=== PATIENT | female | born 1945 | race Caucasian/White ===

== ENCOUNTER 2017-06-12 19:11 | Emergency (ER) | payer BC ==
[~2017-06-12] VITALS: Ht 177.8 cm; Wt 81.8 kg
[~2017-06-12 19:11] MED LIST: ASPI81TA28 PO; CALC500C70 PO; FLNIN NAE; LEVO100T7 PO; MISCCAP80 PO; MULT-506 PO; OMEG10007 PO; PRLSR20 PO; SOLI5TAB2 PO; TRMO180 PV
[2017-06-12 19:18] VITALS: TEMP 36.8; Ht 177.8 cm; Wt 81.8 kg
[2017-06-12] MEDS ORDERED: PROPARACAINE HCL 0.5% OP SOLN 15 ML BTL OP STA (19:38)
[2017-06-12] MEDS ORDERED: AMOX875T PO (20:04)
[2017-06-12 20:14] VITALS: BP 128/74; PULSE 74; O2SAT 98
[2017-06-12] MEDS ORDERED: AMOXICIL/CLAVU 875MG HOME PACK PO ONE (20:15)
[2017-06-12] MEDS ORDERED: CIPROFLOXACIN HCL 0.3% OP SOLN 2.5 ML BTL OP ONE (20:15)
--- NOTE | 2017-06-13 15:44 | EMERGENCY ROOM VISIT NOTE ---
History First contact with patient: 19:23 Chief Complaint: EYE ASSESSMENT Stated Complaint: SOMETHING IN RIGHT EYE History of Present Illness The patient is a 71 year old female who presents to the Emergency Room with complaints of irritation to her right eye that is slowly worsening over the past few hours. The patient has not had decreased vision of the eye. She does not recall injury or trauma. She does report having sinus/flulike symptoms for the past several days as well. She has evidently been seen by her primary care physician for this, and is not currently on antibiotics. The patient has not had fever or chills. No head, neck, chest, or abdominal pain. She did use over -the-counter rewetting drops thinking her eye was dry, however this did not change her symptoms. She does not wear contact lenses and rates her discomfort a 4/10. Review of Systems More than 10 systems were reviewed and otherwise negative with the exception of history of present illness. Past Medical/Surgical History Medical Problems: (1) Breast cancer (2) High cholesterol (3) IBS (irritable bowel syndrome) Family History FHx: diverticulitis Social History Smoking Status: Never Smoker Drug Use: none Marital Status: Housing Status: lives with family Occupation Status: employed Current/Historical Medications Scheduled Amoxicillin & Pot Clavulanate (Augmentin 875-125 mg), 1 TAB PO BID Aspirin (Aspirin Ec), 81 MG PO DAILY Calcium/Vitamin D (Os-Ion 500 Plus D), 1 TAB PO BID Fish Oil ([place]-3), 3,000 MG PO DAILY Fluticasone Propionate (Fluticasone Propionate), 2 SPRAYS JAMAL DAILY Levothyroxine Sodium (Levothyroxine Sodium), 100 MCG PO 6XWK Multivitamin (Multivitamin), 1 TAB PO DAILY Omeprazole (Prilosec), 20 MG PO DAILY Probiotic Product (Probiotic), 1 CAP PO DAILY Solifenacin Succinate (Vesicare), 5 MG PO DAILY Triamcinolone Acet (Triamcinolone Acetonide), 1 APPLN PV DAILY Physical Exam Vital Signs Date Time Temp Pulse Resp B/P (MAP) Pulse Ox O2 Delivery O2 Flow Rate FiO2 06/12/17 20:14 74 20 128/74 98 06/12/17 19:18 36.8 73 16 157/78 98 Room Air Right Eye Acuity: 20/25 Left Eye Acuity: 20/20 Physical Exam VITALS: Vitals are noted on the nurse's note and reviewed by myself. Vital signs stable. Visual acuity as above GENERAL: Well-developed, well-nourished, white female, who is in no acute distress and resting comfortably. Patient is cooperative with the examination. HEAD: Normocephalic atraumatic. EARS: External ear normal. External auditory canals clear, tympanic membranes pearly medrano without erythema or effusion bilaterally. EYES: Pupils equal round and reactive to light and accommodation. The right conjunctiva is slightly injected with mucoid-like drainage. Left conjunctiva is normal without drainage. Normal intraocular pressures bilaterally with tonometry. Slit lamp examination does not reveal foreign body of the cornea or underneath the eyelids. Fluorescein exam is without significant abrasion or laceration. No ulcerations appreciated. NOSE: Patent, turbinates without inflammation or discharge. MOUTH: Mucous membranes moist. Tonsils are not enlarged. Pharynx without erythema, blood, or exudate. Uvula midline. Airway patent. NECK: Supple without nuchal rigidity. No lymphadenopathy. No thyromegaly. Cervical spine is nontender. HEART: Regular rate and rhythm without murmurs gallops or rubs. LUNGS: Clear to auscultation bilaterally without wheezes, rales or rhonchi. No retractions or accessory muscle use. Medical Decision & Procedures Medications Administered Medications (Trade) Dose Ordered Sig/Dylan Route Start Time Stop Time Status Last Admin Dose Admin Ciprofloxacin HCl (Ciprofloxacin 0.3% Op Soln) 2 drops NOW ONCE OP 06/12/17 20:15 06/12/17 20:16 DC 06/12/17 20:12 2 DROPS Amoxicillin/ Clavulanate Potassium (Augmentin 875MG Home Pack) 1 homepack UD ONCE PO 06/12/17 20:15 06/12/17 20:16 DC 06/12/17 20:12 1 HOMEPACK ED Course Physical exam and history were performed. Nursing notes, EMR, and Medication List were personally reviewed. Patient appears to have irritation of her right eye for the past several hours. She has had URI symptoms the past several days. On examination the patient does have mucoid drainage from the eye. She does not appear to have foreign body or abrasion. I suspect that she is experiencing acute conjunctivitis from a sinusitis. The patient will be treated with Augmentin by mouth for the sinusitis and Ciloxan for the conjunctivitis. The patient is to follow with her primary care physician for ongoing care and evaluation. She was otherwise invited back to the ER anytime and was pleased with plan of care. The chart was completed utilizing [employer] Speech Voice Recognition Software. Grammatical errors, random word insertions, pronoun errors, and incomplete sentences are an occasional consequence of this system due to software limitations, ambient noise, and hardware issues. Any formal questions or concerns about the content, text, or information contained within the body of this dictation should be directly addressed to the provider for clarification. . Medical Decision Differential diagnosis includes, but is not limited to: Abrasion, foreign body, laceration, ulceration, conjunctivitis, sinusitis, glaucoma, and others Blood Pressure Screening Patient's blood pressure: Normal blood pressure Impression Primary Impression: Acute conjunctivitis Additional Impression: Acute sinusitis Departure Information Dispostion Home / Self-Care Condition GOOD Prescriptions Amoxicillin & Pot Clavulanate (Augmentin 875-125 mg) 1 Tab Tab 1 TAB PO BID for 10 Days, #20 TAB Prov: Osito Boyle PA-C 06/12/17 Forms HOME CARE DOCUMENTATION FORM, IMPORTANT VISIT INFORMATION Patient Instructions [facility] Additional Instructions You were seen and evaluated today on an emergency basis only. This is not a substitute for, or an effort to provide, complete comprehensive medical care. It is not possible to recognize and treat all injuries or illnesses in a single emergency department visit. For this reason it is recommended that you followup with your primary care physician with any ongoing or persistent symptoms. Use Ciloxan Eye Drops: Instill 1-2 drops into the conjunctival sac every 2 hours while awake for 2 days and 1-2 drops every 4 hours while awake for the next 5 days Amoxicillin Clavulanate (Augmentin) 875mg: Take one pill twice daily for 10 days for your infection. All antibiotics can cause diarrhea. If this occurs and you feel worse or it does not resolve in 1-2 days follow up with your doctor or return to the Emergency Department as this could be signs of serious underlying problems. Any medication can cause an allergic reaction, stop the pills immediately and return to the ER for rash, hives, breathing difficulties, or swelling. You are welcome to return to the emergency department anytime with new, worsening, or concerning symptoms. Problem Qualifiers
== END 2017-06-12 20:15 | disposition home or self-care (01) ==
LOC: C.EDB 19:13 → C.EDD 20:15
DX: H10.31 Unspecified acute conjunctivitis, right eye (principal); J01.90 Acute sinusitis, unspecified; E78.00 Pure hypercholesterolemia, unspecified; K58.9 Irritable bowel syndrome, unspecified; Z85.3 Personal history of malignant neoplasm of breast; Z79.82 Long term (current) use of aspirin; Z79.899 Other long term (current) drug therapy; Z83.79 Family history of other diseases of the digestive system

== ENCOUNTER → 2017-07-24 | Outpatient (CLI) | payer BC ==
--- NOTE | 2017-07-24 09:28 | DIAGNOSTIC IMAGING REPORT ---
Study: Fusion CT sinuses HISTORY:: Chronic sinusitis FINDINGS: Mastoid air cells are clear. Sphenoid air cells as well as ethmoids are considered clear. Maxillary sinuses are considered clear. The estimated units are patent. Frontal sinuses are considered clear. There are no bony destructive changes. IMPRESSION: Normal study. Electronically signed by: Arik Noe M.D. 07/24/2017 9:26 AM Dictated Date/Time: 07/24/2017 9:11 AM
== END | disposition home or self-care (01) ==
LOC: C.CTS 08:52
PROVIDERS: ATTEND Physician Assistant
DX: J32.9 Chronic sinusitis, unspecified (principal)

== ENCOUNTER → 2017-08-03 | Outpatient (CLI) | payer BC | END | disposition home or self-care (01) | LOC: C.PAPS 10:44 | PROVIDERS: ATTEND Obstetrics & Gynecology | DX: Z01.419 Encounter for gynecological examination (general) (routine) without abnormal findings (principal) ==